=== PATIENT | female | born 1980 | race Hispanic/Latino ===

== ENCOUNTER 2018-05-08 21:54 | Emergency (ER) | payer OTHER ==
[2018-05-08 22:42] LABS: BASO # 0.1 K/uL (0.0-0.2); BASO % 1.2 % (0.0-2.0); EOS # 0.2 K/uL (0.0-0.7); LYMPH # 1.7 K/uL (1.0-4.3); LYMPH % 21.2 % (20.0-40.0); MEAN CELL VOLUME 78.7 fl (81.0-99.0); MEAN PLATELET VOLUME 8.9 fl (7.2-11.7); MONO # 0.4 K/uL (0.0-0.8); MONO % 4.7 % (0.0-10.0); NEUT # 5.8 K/uL (1.8-7.0); NEUT % 70.9 % (50.0-75.0); RBC 4.25 Mil/uL (3.80-5.20); RED CELL DISTRIBUTION WIDTH 14.8 % (11.5-14.5); WHITE BLOOD COUNT 8.2 K/uL (4.8-10.8)
[2018-05-08 22:45] LABS: PROTHROMBIN TIME 10.9 Seconds (9.8-13.1)
[2018-05-08 22:48] LABS: PARTIAL THROMBOPLASTIN TIME 31.2 Seconds (25.6-37.1)
[2018-05-08 22:58] LABS: ALB/GLOB RATIO 1.5 (1.0-2.1); ALBUMIN 4.2 g/dL (3.5-5.0); ALT/SGPT 39 U/L (9-52); AST/SGOT 20 U/L (14-36); BLOOD UREA NITROGEN 11 mg/dl (7-17); CALCIUM 9.1 mg/dL (8.4-10.2); GFR NON-AFRICAN AMERICAN > 60
[2018-05-08 23:02] LABS: B-TYPE NATRIURETIC PEPTIDE 263 pg/ml (0-450)
--- NOTE | 2018-05-08 23:14 | ED PDOC ---
HPI: SOB/CHF/COPD Time Seen by Provider: 05/08/18 22:14 Chief Complaint (Nursing): Shortness Of Breath Chief Complaint (Provider): Shortness of breath History Per: Patient History/Exam Limitations: no limitations Onset/Duration Of Symptoms: Days (x1 week), Worse Since (onset) Current Symptoms Are (Timing): Still Present Associated Symptoms: Chest Pain (intermittent midsternal ). denies: Fever, Chills, Productive Cough Additional Complaint(s): Mary Brown is a 38 year old female, with a past medical history of asthma, venous stasis ulcers and severe varicose veins, currently in bilateral unna boots for treatment of her varicose veins, who presents to the emergency department complaining of shortness of breath onset for a week and worsening since onset. Patient reports improvement with rest and worsens with exertion including just simple walking. Patient also reports an intermittent midsternal chest pain. She has been using Albuterol in attempt to relieve her symptoms but with no help. Patient states her skin is pale but denies any fever, chills, cough or wheezing. No further medical complaints. PMD: [facility] Past Medical History Reviewed: Historical Data, Nursing Documentation, Vital Signs Vital Signs: Last Vital Signs Temp 98.3 F 05/08/18 22:04 Pulse 78 05/08/18 22:04 Resp 20 05/08/18 22:10 BP 149/88 05/08/18 22:04 Pulse Ox 98 05/08/18 22:10 - Medical History PMH: Asthma Other PMH: severe varicose veins and venous stasis ulcers - Surgical History Other surgeries: varicose vein surgery - Family History Family History: States: CAD, Hypertension - Social History Current smoker - smoking cessation education provided: No - Allergies Allergies/Adverse Reactions: Allergies Allergy/AdvReac Type Severity Reaction Status Date / Time No Known Allergies Allergy Verified 05/08/18 22:05 Review of Systems ROS Statement: Except As Marked, All Systems Reviewed And Found Negative Constitutional: Negative for: Fever, Chills Cardiovascular: Positive for: Chest Pain (intermittent midsternal) Respiratory: Positive for: Shortness of Breath. Negative for: Cough, Wheezing Skin: Positive for: Other (pale) Physical Exam - Reviewed Nursing Documentation Reviewed: Yes Vital Signs Reviewed: Yes - Physical Exam Appears: Positive for: Well, No Acute Distress Head Exam: Positive for: ATRAUMATIC, NORMAL INSPECTION, NORMOCEPHALIC Skin: Positive for: Normal Color, Warm, Dry Eye Exam: Positive for: Normal appearance, EOMI, PERRL Neck: Positive for: Normal, Painless ROM Cardiovascular/Chest: Positive for: Regular Rate, Rhythm. Negative for: Murmur Respiratory: Positive for: Normal Breath Sounds (clear to auscultation). Negative for: Accessory Muscle Use, Rales, Rhonchi, Wheezing, Respiratory Distress Gastrointestinal/Abdominal: Positive for: Normal Exam, Soft. Negative for: Tenderness Back: Positive for: Normal Inspection. Negative for: Vertebral Tenderness Extremity: Positive for: Normal ROM (upper and lower extremities), Other (bilateral legs standard unna boot dress extending from foot all the way to knee). Negative for: Deformity Neurologic/Psych: Positive for: Alert, Oriented - Laboratory Results Result Diagrams: 05/08/18 22:34 05/08/18 22:34 - ECG O2 Sat by Pulse Oximetry: 98 (RA) Pulse Ox Interpretation: Normal Medical Decision Making Medical Decision Making: Time: 22:14 Initial Impression: Shortness of breath. Differential includes but not limited to PE, CHF, pleural effusion, PNA, anemia and dehydration Initial Plan: --Type and screen --EKG --B-Type Natriuretic Peptide --CMP --TSH --Troponin I --Urine --Urine dipstick --CBC w/ differential --D Dimer --PTT --PT --Reevaluation 00:00 Patient signed out to Dr. Noguera pending CT angio. Scribe Attestation: Documented by Fabio Alonzo, acting as a scribe for Chrissy Wood MD. Provider Scribe Attestation: All medical record entries made by the Scribe were at my direction and personally dictated by me. I have reviewed the chart and agree that the record accurately reflects my personal performance of the history, physical exam, medical decision making, and the department course for this patient. I have also personally directed, reviewed, and agree with the discharge instructions and d isposition. Disposition - Clinical Impression Clinical Impression: Chronic congestive heart failure - Disposition Disposition: Transfer of Care Disposition Time: 00:00 Condition: STABLE
--- NOTE | 2018-05-09 00:09 | ED PDOC ---
- Laboratory Results Result Diagrams: 05/08/18 22:34 05/08/18 22:34 - ECG O2 Sat by Pulse Oximetry: 98 (RA) Medical Decision Making Medical Decision Makin:00 Patient endorsed to provider by Dr. Wood pending CT angio. 02:23 Chest CTA FINDINGS: PULMONARY ARTERIES No evidence of central or segmental pulmonary embolism is seen. AORTA There is no evidence for aneurysm or dissection of the thoracic aorta. LUNGS There is evidence for pulmonary venous congestion compatible with CHF. Bibasilar atelectasis. PLEURAL SPACES Trace bilateral pleural effusions are noted. HEART The cardiac silhouette is enlarged. LYMPH NODES No lymphadenopathy is evident. BONES No focal osseous abnormality or acute fracture. UPPER ABDOMEN Images of the upper abdomen are unremarkable. IMPRESSION: 1. The cardiac silhouette is enlarged. 2. There is evidence for pulmonary venous congestion compatible with CHF. 3. Trace bilateral pleural effusions are noted. 4. Bibasilar atelectasis. 5. No evidence of PE. 03:12 pt aware of results of CT. Ordered Lasix. Patient is medically stable for discharge home. Diagnosis of CHF. Patient advised to follow up with PMD in 1-2 days and from there will need cardiology referral. ----- Scribe Attestation: Documented by Fabio Alonzo, acting as a scribe for Preet Noguera MD. Provider Scribe Attestation: All medical record entries made by the Scribe were at my direction and personally dictated by me. I have reviewed the chart and agree that the record accurately reflects my personal performance of the history, physical exam, medical decision making, and the department course for this patient. I have also personally directed, reviewed, and agree with the discharge instructions and disposition. Disposition Counseled Patient/Family Regarding: Studies Performed, Diagnosis - Clinical Impression Clinical Impression: CHF (congestive heart failure) - POA Present On Arrival: None - Disposition Disposition: Routine/Home Disposition Time: 03:10 Condition: IMPROVED
[2018-05-09] MEDS ORDERED: Iodixanol 320 MG/ML 100 ML BOTTLE IV ONE (00:44)
[2018-05-09] MEDS ORDERED: Iodixanol 320 mg/ml 50 ml Sol IV ONE (00:45)
[2018-05-09] MEDS ORDERED: Sodium Chloride 0.9% 50 ML IV ONE (00:45)
[2018-05-09] MEDS ORDERED: Potassium Chloride 20 mEq ER Tab PO ONE (03:20)
[2018-05-09 03:31] VITALS: BP 128/80; PULSE 86; RESP 22; TEMP 98.5
--- NOTE | 2018-05-09 10:06 | CARD ---
APPROVED REPORT Date of service: 05/08/2018 EKG Measurement Heart [id number] <Conclusion> Sinus rhythm with marked sinus arrhythmia Cannot rule out small or absent R waves V1-V3, may be due to lead placement or possible septal infarct age undetermined. Abnormal ECG
--- NOTE | 2018-05-09 11:49 | CT ---
Date of service: 05/09/2018 PROCEDURE: CT Chest with contrast (Pulmonary Angiogram) HISTORY: sob r/o PE COMPARISON: None available. TECHNIQUE: Axial computed tomography images were obtained of the chest in the pulmonary arterial phase of enhancement. Coronal and sagittal reformatted images were created and reviewed. Maximum intensity projection (MIP) reconstructed images in the following planes: Sagittal and coronal and axial planes Intravenous contrast dose: 100 cc Visipaque 320. Mean Hounsfield value in the main pulmonary artery: 210.77 Radiation dose: Total exam DLP = 365.43 mGy-cm. This CT exam was performed using one or more of the following dose reduction techniques: Automated exposure control, adjustment of the mA and/or kV according to patient size, and/or use of iterative reconstruction technique. FINDINGS: PULMONARY ARTERIES: No central pulmonary emboli identified. AORTA: No acute findings. No thoracic aortic aneurysm. No atherosclerotic calcification or mural plaque present. LUNGS: Unremarkable. No nodule, mass or pulmonary consolidation. PLEURAL SPACES: Trace bilateral pleural effusions. HEART: Unremarkable. No cardiomegaly. No significant pericardial effusion. LYMPH NODES: No lymphadenopathy. BONES, CHEST WALL: Unremarkable. No fracture or destructive lesion OTHER FINDINGS: Unremarkable. IMPRESSION: No large, central pulmonary emboli. Nondiagnostic assessment at and beyond the segmental branches based on qualitative and quantitative assessment of opacification of the pulmonary arteries. Additional benign and/or incidental findings described above. Concordant results (preliminary interpretation) provided by [employer]. Procedure Completed: 00:58. Preliminary Report: Dictated and Authenticated: 02:23. Final Interpretation: 11:45. May 09, 2018
[2018-05-09 15:20] VITALS: O2SAT 98
== END 2018-05-09 03:31 | disposition home or self-care (01) ==
LOC: H.ER 21:54
DX: I50.9 Heart failure, unspecified (principal)
CPT/HCPCS: 71275; 80053; 81025; 83880; 84443; 84484; 85025; 85610; 85730; 86850; 86900; 93005; 99284; Q9967